=== PATIENT | female | born 1990 | race American Indian/Alaskan Native ===

== ENCOUNTER 2016-10-12 00:09 | Inpatient (IN) | payer BC ==
[~2016-10-12] VITALS: Ht 157.5 cm; Wt 112.0 kg
[2016-10-12] MEDS ORDERED: ZANTAC150 MG PO (01:14)
[2016-10-12] MEDS ORDERED: PRENATAL VITAM1 EAC7 PO (01:14)
--- NOTE | 2016-10-12 14:48 | NUR ---
10/12/16 1448 Olena Whalen 1440 PATIENT ARRIVES TO ROOM 106 AWAKE, RESP EVEN AND UNLABORED, ON ROOM AIR. DENIES PAIN OR NAUSEA. PITOCIN 20 UNITS IN LR 1000 INFUSING TKO TO RIGHT HAND. 1445 SKIN TO SKIN WITH BABY ON PATIENT'S CHEST, REPORTS GOOD STRENGTH, BUT THAT HER ARMS DO FEEL A LITTLE HEAVY.
--- NOTE | 2016-10-13 10:03 | PR ---
[facility] [address] [place], [place] [address] Signed PP Progress Notes Datetime Report Generated by FEDERICO: 10/13/2016 10:03 SUBJECTIVE: [id number] Pain: Within normal limits Nausea/Vomiting: Denies Flatus: No Vital Signs: [id number] Vital Signs: Reviewed; Within Normal Limits EXAM: [id number] Cardiovascular: Normal Respiratory: Normal Abdomen/Uterus: Abnormal Lochia: Normal Vulva/Perineum: Not Done Breasts: Not Done CVA Tenderness: Not Done Extremities: Normal Incision: Normal Progress: Normal Exam Comments: Abdomen with active BS. Fundus firm, NT@ U-1. H/H 10.1/30.8, WBC 14.2, plat 307k IMPRESSION/PLAN/PROCEDURES: [id number] Impression: Normal progression Plan: Continue present management Other Plans: ambulate, shower Procedures: None Progress Notes: Doing well overall. Signing Physician: Pema Patten MD CC: *Electronically Signed* 10/13/16 1003 PEMA PATTEN MD PATIENT NAME: KATIESHAMIR PROGRESS NOTE DATE OF : 89 PHYSICIAN: PEMA PATTEN MD RPT #: [id number] REPORT IS CONFIDENTIAL AND NOT TO BE RELEASED WITHOUT AUTHORIZATION
--- NOTE | 2016-10-14 07:40 | PR ---
[facility] [address] [place], [place] [address] Signed PP Progress Notes Datetime Report Generated by FEDERICO: 10/14/2016 07:40 SUBJECTIVE: [id number] Pain: Within normal limits Nausea/Vomiting: Denies Flatus: Yes Vital Signs: [id number] Vital Signs: Reviewed; Within Normal Limits EXAM: [id number] Cardiovascular: Normal Respiratory: Normal Abdomen/Uterus: Abnormal Lochia: Normal Vulva/Perineum: Not Done Breasts: Not Done CVA Tenderness: Not Done Extremities: Normal Incision: Normal Progress: Normal Exam Comments: Abdomen with active BS. Fundus firm, NT @ U-1. IMPRESSION/PLAN/PROCEDURES: [id number] Impression: Normal progression Plan: Remove shereen; Discharge Other Plans: ambulate, shower Procedures: None Progress Notes: Doing well. Will D/C home today. Signing Physician: Pema Patten MD CC: *Electronically Signed* 10/14/16 0740 PEMA PATTEN MD PATIENT NAME: KATIESHAMIR PROGRESS NOTE DATE OF : 90 PHYSICIAN: PEMA PATTEN MD RPT #: [id number] REPORT IS CONFIDENTIAL AND NOT TO BE RELEASED WITHOUT AUTHORIZATION
--- NOTE | 2016-11-06 07:49 | OR ---
[facility] [address] [place], [place] [address] Signed DATE OF SERVICE: 10/12/2016 SURGEON: Pema Patten MD. JEWELRY BENCH MOLDER: Mason Nguyễn DO. PREOPERATIVE DIAGNOSIS: A 41-3/7th week , intolerance to labor. POSTOPERATIVE DIAGNOSIS: A 41-3/7th week , intolerance to labor, delivered. PROCEDURE: Primary section with low segment transverse uterine incision. ANESTHESIA: Epidural. ESTIMATED BLOOD LOSS: 600 mL. DRAINS: Flaherty catheter. INDICATIONS AND FINDINGS: The patient is a 26-year-old female, 1, para 0, admitted at 41-3/7th weeks for induction secondary to post dates and oligohydramnios. She received 2 doses of Cytotec after her admission, but did have intermittent prolonged decelerations. When rupture of membranes was carried out, meconium was seen. Subsequent to this, the patient h ad recurrent decelerations, which were of late and variable type. The baby would recover in between times, but it was felt that given the fact that she was only 2 cm, the baby would not tolerate stronger contractions. An IUPC had documented that the contractions were of very poor quality. She was counseled and taken to the operating room for a primary section. She has delivered a little boy from the ROP position with Apgars of 8 and 9 and weight of 8 pounds 13 ounces. There was thick meconium at delivery. The uterus tubes, ovaries, and placenta appeared normal. DESCRIPTION OF PROCEDURE: The patient was prepped and draped in the supine position. A Pfannenstiel skin incision was made and carried down through the fascia with the knife. The incision was extended laterally. The inferior and superior fascial flaps were then created. The muscles were bluntly divided and the peritoneum was opened sharply and the incision extended superiorly and inferiorly. The Emiliano retractor was placed. The uterine incision was made just above the peritoneal reflection. The baby was delivered with the above findings and handed off to the pediatric staff in attendance. Cord gases were obtained Electronically Signed By: PEMA PATTEN MD 11/06/16 0749 PATIENT NAME: SHAMIR WILSON OPERATIVE REPORT DATE OF : 90 PHYSICIAN: PEMA PATTEN MD REPORT #: [id number] REPORT IS CONFIDENTIAL AND NOT TO BE RELEASED WITHOUT AUTHORIZATION [facility] [address] [place], [place] [address] Signed as well as cord blood. The placenta was removed manually and then the uterus explored with a lap tape to ensure no remaining fragments. The edges of the incision were identified and the uterus was closed in 2 layers using 0 Monocryl. The first layer was a running locking stitch and the second was a vertical imbricating stitch. An additional [id number] was required near the patient's left angle for control of bleeding inferior to the incision. Following this, the abdomen was irrigated and inspected and good hemostasis was noted. The retractor was removed and peritoneum identified. An ACell graft was laid over the lower segment to aid in healing. The peritoneum was then closed with running suture of 3-0 Vicryl. The muscles were brought together with interrupted sutures of 0 Vicryl. ACell powder was sprinkled over the muscles to aid i n healing. The fascia was closed from each angle to the midline with a running suture of 0 Vicryl. The subcutaneous tissue was then irrigated and inspected and bleeding points controlled with cautery. Another ACell powder was sprinkled in the subcu space because of the depth of the subcu. The subcu space was reduced with interrupted sutures of 3-0 Vicryl and the skin was closed with shereen. All sponge and needle counts were correct. She tolerated the procedure well and was taken to the recovery room in [facility] condition. MD MORGAN WaldenW/Mi /[id number] cc: Mason Nguyễn DO Electronically Signed By: PEMA PATTEN MD 11/06/16 0749 PATIENT NAME: SHAMIR WILSON OPERATIVE REPORT DATE OF : 90 PHYSICIAN: PEMA PATTEN MD REPORT #: [id number] REPORT IS CONFIDENTIAL AND NOT TO BE RELEASED WITHOUT AUTHORIZATION
== END 2016-10-14 12:15 | disposition home or self-care (01) | DRG 766 ==
LOC: FBC 00:09
PROVIDERS: ADMIT Obstetrics & Gynecology
PROC: 10D00Z1 Extraction of Products of Conception, Low, Open Approach (ICD-10-PCS; principal; 2016-10-12 13:45)
DX: O76 Abnormality in fetal heart rate and rhythm complicating labor and delivery (principal); O14.94 Unspecified pre-eclampsia, complicating childbirth; Z3A.41 41 weeks gestation of pregnancy; Z37.0 Single live birth; O77.0 Labor and delivery complicated by meconium in amniotic fluid
CPT/HCPCS: 01960; 01961; 36415; 82803; 85027; C1763; J0360; J0690; J1100; J1644; J2274; J2370; J2405; J2550; J2590; J3010; J7120